=== PATIENT | male | born 1955 | race Caucasian/White ===

== ENCOUNTER 2021-12-28 13:25 | Emergency (ER) | payer MEDICARE, SELFPAY ==
[2021-12-28 13:40] VITALS: BP 163/104; PULSE 74; RESP 20; TEMP 35.9; O2SAT 96
--- NOTE | 2021-12-28 13:45 | ED.WOUNDLAC ---
HPI - Wound/Laceration General Chief Complaint: Wound/Laceration Stated Complaint: Cut on L hand Time Seen by Provider: 12/28/21 13:45 Source: patient and family Mode of arrival: ambulatory Limitations: no limitations History of Present Illness HPI narrative: this is a 66-year-old gentleman that presents with a laceration to his left palm after he was working on his boat trailer hitch and slipped catching his left hand and palm causing laceration and multiple sites of his left palm and left thenar area of his left thumb, there is no numbness or tingling has movement in all of all of his fingers and a brisk radial pulse on. Related Data Home Medications Medication Instructions Recorded Confirmed aspirin 325 mg tablet 325 mg PO DAILY 10/20/20 cyanocobalamin (vitamin B-12) 1,000 mcg PO BID 10/20/20 1,000 mcg tablet loratadine 10 mg tablet 10 mg PO DAILY PRN 10/20/20 phenytoin sodium extended 100 mg 300 mg PO BID cap 10/20/20 capsule carvedilol 3.125 mg PO BID 12/28/21 diltiazem HCl 240 mg PO DAILY 12/28/21 ezetimibe 10 mg PO DAILY 12/28/21 folic acid 1 mg PO DAILY 12/28/21 metformin 500 mg PO BID 12/28/21 Allergies Allergy/AdvReac Type Severity Reaction Status Date / Time [id number] Reductase AdvReac Severe Cramping Verified 12/28/21 14:03 Inhibitor of the Muscles irbesartan AdvReac Unknown Unknown Verified 12/28/21 14:03 quinapril AdvReac Unknown Swelling Verified 12/28/21 14:03 Review of Systems Review of Systems: All systems reviewed & are unremarkable except as noted in HPI and below PMFSH Past Medical History Medical History Hypertension Seizure disorder Vitamin B12 deficiency Surgical History Surgical History History of knee surgery History of surgery on wrist Social History Social History Smoking status: Never smoker Additional living arrangements comments: . Exam Const: General: no acute distress and alert Orientation/consciousness: patient oriented x3 HENMT: Head: normal to inspection Eyes: Conjunctivae: conjunctivae normal Pupils: Equal, round and reactive pupils present EOM: EOMs intact bilaterally Direct Ophthalmoscopy: no photophobia Neck: Neck: normal visual inspection, no lymphadenopathy and no meningeal signs Chest: Chest palpation & inspection: normal inspection of the chest Resp: Effort & Inspection: normal respiratory effort Auscultation: clear to auscultation bilaterally Cardio: Rate: regular rate Rhythm: regular rhythm GI: GI Palp: Yes Soft to palpation Percussion: Yes normal to percussion Back/Spine/Pelvis: Back: no CVA tenderness Skin: General skin exam: normal color Rashes: no rashes Other: Laceration to his left palm approximately 3cm in length flap and also on his left thumb area with a low flap laceration. Neuro: General: patient oriented x3 and moves all extremities Extrem: General: normal to inspection and no pedal edema Psych: Mental Status: mental status grossly normal Affect: normal affect Course Course Emergency Course: Area was prepped 1% lidocaine was given and sutures were placed in his left palmar area. Patient tolerated procedure well with minimal blood loss currently no numbness or tingling and has movement in all of his fingers on his left hand. Vital Signs Vital signs: Vital Signs Temperature 35.9 C L 12/28/21 13:40 Pulse Rate 74 12/28/21 13:40 Respiratory Rate 20 12/28/21 13:40 Blood Pressure 163/104 H 12/28/21 13:40 Pulse Oximetry 96 12/28/21 13:40 Temperature 35.9 C L 12/28/21 13:40 Pulse Rate 74 12/28/21 13:40 Respiratory Rate 20 12/28/21 13:40 Blood Pressure 163/104 H 12/28/21 13:40 Pulse Oximetry 96 12/28/21 13:40 Procedures Laceration Laceration 1: Date: 12/28/21
[2021-12-28] MEDS: TETANUS,DIPHTHERIA,AC PERTUSSIS ADULT 0.5 ML (ADACEL) IM (14:11)
[2021-12-28] MEDS: NEOMYCIN/POLYMYXIN/BACITRACIN OINTMENT PACKET 1 PACKET TOPICAL (14:53)
[2021-12-28 15:14] VITALS: BP 149/92; PULSE 60; RESP 20; TEMP 36.5; O2SAT 97
== END 2021-12-28 15:21 | disposition home or self-care (01) ==
PROVIDERS: Emergency Provider Emergency Medicine; PCP Family Medicine
DX: S61.412A Laceration without foreign body of left hand, initial encounter (principal); W45.8XXA Other foreign body or object entering through skin, initial encounter; I10 Essential (primary) hypertension; E53.8 Deficiency of other specified B group vitamins
CPT/HCPCS: 12002; 90471; 90715; 99282

== ENCOUNTER 2022-01-04 11:38 | Outpatient (CLI) | payer MEDICARE, SELFPAY ==
--- NOTE | ~2022-01-04 | XR_ITS ---
XR hand LT min 3V DATE: 01/04/2022 11:59 INDICATION: First metacarpal/palm laceration one week ago. Evaluate for foreign body. TECHNIQUE: 3 views COMPARISON: None FINDINGS: Prominent arterial calcifications are noted in the distal forearm. Diffuse osteopenia. There is severe osteoarthritic change at the first carpometacarpal joint. There is osteoarthritic roula nge at the second metacarpophalangeal and multiple interphalangeal joints. No recent fracture or dislocation, periosteal reaction or bone destruction. No radiopaque soft tissue foreign body is evident. IMPRESSION: No radiopaque foreign body Osteopenia Polyarticular osteoarthritis, most severe at first carpometacarpal joint Reviewed, dictated and finalized at location A. L[facility] PRACTICE DOCTOR
== END 2022-01-04 11:39 | disposition home or self-care (01) ==
LOC: CHSIMG 11:40
PROVIDERS: PCP Family Medicine; Visit Provider Nurse Practitioner Family
DX: S61.412A Laceration without foreign body of left hand, initial encounter (principal)
CPT/HCPCS: 73130

== ENCOUNTER 2022-09-09 11:41 | Emergency (ER) | payer MEDICARE, SELFPAY ==
--- NOTE | ~2022-09-09 | XR_ITS ---
EXAMINATION: XR finger 2nd LT min 2V DATE: 09/09/2022 12:17 INDICATION: Post injury to the left index finger TECHNIQUE: Dorsal palmar, lateral and oblique views of the left second digit were obtained COMPARISON: None FINDINGS: Nondisplaced fracture extending across the tuft of the left second distal phalanx. Alignment remains essentially anatomic. An irregular contour to the soft tissue contour at the left distal phalanx sugg esting associated nailbed injury which would recommend this equivalent of an open/compound fracture. No other fractures identified. Severe osteoarthritis at the first carpometacarpal joint with remodeli ng of the base of the first metacarpal. Additional polyarticular osteoarthritis, moderate at the seco nd and third metacarpophalangeal joints and mild at the remaining visualized metacarpophalangeal and interphalangeal joints. Diffuse osteopenia. IMPRESSION: 1. Nondisplaced tuft fracture at the left second distal phalanx with suggestion of an associated nail bed injury which if present would render this equivalent of an open/compound fracture at increased ri sk of infection. Reviewed, dictated and finalized at location B. IMPRESSION: 1. Nondisplaced tuft fracture at the left second distal phalanx with suggestion of an associated nailbed injury which if present would render this equivalent of an open/compound fracture at increased risk of infection.
[2022-09-09 11:42] VITALS: BP 144/99; PULSE 67; RESP 16; TEMP 35.7; O2SAT 99
--- NOTE | 2022-09-09 12:40 | ED.UPPEXIN ---
HPI - Extremity Injury (Upper) General Chief Complaint: Extremity Injury, Upper Stated Complaint: left finger injury Time Seen by Provider: 09/09/22 11:43 Source: patient and family Mode of arrival: ambulatory Limitations: no limitations History of Present Illness HPI narrative: patient presents with a injured left index finger after he got it caught in 2 pieces a plank would causing nail avulsion at the of his nail the nail is otherwise intact, no exposed skin underneath the nail currently no bleeding does have some pain and tenderness the distal left index finger with mild swelling has good range of motion with no numbness or tingling. complaint: injury to: left Onset (ago): hour(s) Other Extremity Injury: Left: fingers ( nail avulsion left index finger) Other injuries: none Handedness: left Place: home Severity: mild Severity scale (1-10): 3 Relieving factors: cold therapy Exacerbating factors: none Context: direct blow Related Data Home Medications Medication Instructions Recorded Confirmed aspirin 325 mg tablet 325 mg PO DAILY 10/20/20 09/09/22 cyanocobalamin (vitamin B-12) 1,000 mcg PO BID 10/20/20 09/09/22 1,000 mcg tablet loratadine 10 mg tablet (Claritin) 10 mg PO DAILY PRN allergies 10/20/20 09/09/22 phenytoin sodium extended 100 mg 300 mg PO BID 10/20/20 09/09/22 capsule (Dilantin Extended) carvedilol 3.125 mg tablet 3.125 mg PO BID 12/28/21 09/09/22 gabapentin 300 mg capsule 600 mg PO BID 09/09/22 09/09/22 Allergies Allergy/AdvReac Type Severity Reaction Status Date / Time [id number] Reductase AdvReac Severe Cramping Verified 09/09/22 12:03 Inhibitor of the Muscles irbesartan AdvReac Unknown Unknown Verified 09/09/22 12:03 quinapril AdvReac Unknown Swelling Verified 09/09/22 12:03 Review of Systems Review of Systems: All systems reviewed & are unremarkable except as noted in HPI and below PMFSH Past Medical History Medical History Hypertension Seizure disorder Vitamin B12 deficiency Surgical History Surgical History History of knee surgery History of surgery on wrist Social History Social History Additional living arrangements comments: . Exam Const: General: healthy appearing HENMT: Head: normal to inspection Face/Nose/Sinus: Normal external nose present Face and sinus: normal facial exam Throat: posterior oropharynx normal Eyes: Conjunctivae: conjunctivae normal Neck: Neck: normal visual inspection Chest: Chest palpation & inspection: normal inspection of the chest Resp: Effort & Inspection: normal respiratory effort Auscultation: clear to auscultation bilaterally Cardio: Rate: regular rate Rhythm: regular rhythm GI: GI Palp: Yes Soft to palpation Skin: Other: Nail avulsion left index finger with no bleeding Neuro: General: patient oriented x3 and moves all extremities Extrem: General: normal to inspection and no clubbing, cyanosis or edema Psych: Mental Status: mental status grossly normal Affect: normal affect Course Course Emergency Course: x-ray performed shows that there is a type fracture of the distal left index finger with nail avulsion at the the bed of the fingernail but it is some well intact will leave in place and has been soaking will dress of the finger and send antibiotics to patient's pharmacy, he is up-to-date with his tetanus with a tuft fracture will apply a metal finger splint. Vital Signs Vital signs: Vital Signs Temperature 35.7 C L 09/09/22 11:42 Pulse Rate 67 09/09/22 11:42 Respiratory Rate 16 09/09/22 11:42 Blood Pressure 144/99 H 09/09/22 11:42 Pulse Oximetry 99 09/09/22 11:42 Oxygen Delivery Room Air 09/09/22 11:42 Temperature 35.7 C L 09/09/22 11:42 Pulse Rate 67 09/09/22 11:42 Respiratory Rate 16 10
[2022-09-09 13:00] VITALS: BP 135/80; PULSE 78; RESP 20; O2SAT 96
== END 2022-09-09 13:01 | disposition home or self-care (01) ==
PROVIDERS: Emergency Provider Emergency Medicine; PCP Family Medicine
DX: S62.661A Nondisplaced fracture of distal phalanx of left index finger, initial encounter for closed fracture (principal); W22.8XXA Striking against or struck by other objects, initial encounter
CPT/HCPCS: 29130; 73140; 99284

== ENCOUNTER 2022-12-29 10:06 | Outpatient (RCR) | payer MEDICARE, SELFPAY ==
--- NOTE | 2022-12-31 14:19 | BUPTOPEVAL1 ---
Assessment and note entered by JT File, PT Evaluation Information Assessment Status Evaluation Diagnosis bilateral LE weakness, unsteady gait Subjective Information patient reports he is coming to therapy due to weakness, unable to get up from the floort, and unsteady gait/balance. he reports he has been noticing increased weakness in the legs for the past 3 months or so. he reports he does have a history of falls, but reports his last fall was about 1.5 years ago. he reports during this fall he did get an infection from an injury to the abdomen. he reports he is on disability, and is restricted to walking no more than 200ft at a time without support. he reports he has had 2 strokes. her eports he has a quad can that he uses to get around in the community, as well as, assistance from his . he reports he does not use AD in the home. Reported Pain Level Pain Score 0: Self Report Assessment PT Clinical Summary mr. ramirez presents to skilled PT services for evaluation and treatment of generalized LE weakness, decreased endurance, and unsteady gait. he presents this date with signs and symptoms of lumbar psinal stenosis/DDD affecting his LE strength and endurance for upright activities. he also presents with an increased to moderat at least fall risk per the tinetti, TUG, and 5x sit to stand. he would do well to attend skilled PT to improve his objective/functional deficits and progress towards a return to his prior level functional activity performance and quality of life. Plan of Care Interventions Gait Training,Neuro Re-education,Patient/Caregiver Educati,Therapeutic Activities,Therapeutic Exercise PT Services Indicated Yes Treatment Frequency and 3x weekly for 12 visits Duration These treatments will address the objective and functional deficits as defined above. The patient will be advanced safely and appropriately in order for the patient to progress towards his/her prior level of function. Additional exercises will be introduced and as well as a comprehensive home exercise program upon discharge, if needed, ?to ensure carryover of functional gains achieved in the clinic. This treatment plan has been reviewed and agreement upon by the patient.
--- NOTE | 2023-01-21 10:38 | PTOPPROG ---
Assessment and note entered by JT File, PT Evaluation Information Assessment Status Progress Diagnosis bilateral LE weakness, unsteady gait Subjective Information patient reports he feels pretty good today. he reports he is a little sore in the R hip and lower back with exercises today, but in general his pain is low. he reports feeling stronger since starting therapy. Assessment PT Clinical Summary mr. ramirez presents to skilled PT services for his 10th skilled PT visit. as of this date, he has made progress in balance, endurance, and safety with sit to stand transfers. he has met goals for tinetti, 6 minute walk test, and is progressing towards achieving strength and TUG/5x sit to stand goals. he would benefit from continued skilled PT per his initial POC to reach his remaining goals and improve his endurance and safety with functional activities at home and in the community . Plan of Care Interventions Gait Training,Neuro Re-education,Patient/Caregiver Educati,Therapeutic Activities,Therapeutic Exercise PT Services Indicated Yes Treatment Frequency and continue skilled PT per the initial evaluation for Duration 2 more visits These treatments will address the objective and functional deficits as defined above. The patient will be advanced safely and appropriately in order for the patient to progress towards his/her prior level of function. Additional exercises will be introduced and as well as a comprehensive home exercise program upon discharge, if needed, ?to ensure carryover of functional gains achieved in the clinic. This treatment plan has been reviewed and agreement upon by the patient.
--- NOTE | 2023-01-27 14:39 | PTOPDC ---
Assessment and note entered by JT File, PT Evaluation Information Assessment Status Discharge Diagnosis bilateral LE weakness, unsteady gait Subjective Information patient reports he feels good this date. he reports he has been walking with his outside this week. he reports no falls. he reports he has been compliant with his HEP at home. Reported Pain Level Pain Score 4,4: Self Report Assessment PT Clinical Summary mr. ramirez presents to skilled PT services for his 12th skilled PT visit. as of this date, he has met nearly all goals for skilled PT, except for time to complete 5x sit to stand. he will DC from skilled PT this date, and continue with HEP independent at home. Plan of Care Treatment Frequency and DC to independent HEP Duration
== END 2023-01-27 17:53 | disposition home or self-care (01) ==
LOC: CHSPT 10:06
DX: R29.898 Other symptoms and signs involving the musculoskeletal system (principal)
CPT/HCPCS: 97110; 97112; 97161; 97530; 97750

== ENCOUNTER 2023-03-09 14:22 | Emergency (ER) | payer MEDICARE, SELFPAY ==
--- NOTE | ~2023-03-09 | XR_ITS ---
Right Hand Technique: PA, oblique, and lateral views were obtained. Clinical History: Pain Findings: Traumatic fracture of the distal fifth metacarpal neck present, with volar angulation. Ther e is also traumatic fracture of the distal fourth metacarpal with extension to the metacarpal head, m inimally displaced. Remaining osseous structures are intact. There is moderate to advanced degenerati ve change at the first CMC joint. Remaining joint spaces are preserved. Soft tissues are unremarkable . Impression: Traumatic fractures of the distal fourth and fifth metacarpals, as detailed above. Moderate to severe degenerative change at the first CMC joint. Reviewed, dictated and finalized at location M. Impression: Traumatic fractures of the distal fourth and fifth metacarpals, as detailed abo ve. Moderate to severe degenerative change at the first CMC joint.
[2023-03-09 14:25] VITALS: BP 159/90; PULSE 62; RESP 18; TEMP 36.9; O2SAT 95
--- NOTE | 2023-03-09 14:34 | ED.GENADULT ---
HPI - General Adult General Chief complaint: Extremity Injury, Upper Stated complaint: right hand pain Time Seen by Provider: 03/09/23 14:30 History of Present Illness HPI narrative: The patient is a 67-year-old male with a history of asthma, hyperlipidemia, spry stroke, seizure disorder, hypertension, who is on aspirin 325 mg daily. Prior right wrist surgery. 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 He broke his fall with his flexed right hand, resulting in a hyper-flexion injury at the right wrist, where he has pain, the dorsal aspect of the right hand, mostly at the 4th and 5th metacarpal bones. His helmet resulted in a small abrasion at the right forehead. no other complaints. Has not taken any pain medications. No other injuries. Related Data Home Medications Medication Instructions Recorded Confirmed aspirin 325 mg tablet 325 mg PO DAILY 10/20/20 09/09/22 cyanocobalamin (vitamin B-12) 1,000 mcg PO BID 10/20/20 09/09/22 1,000 mcg tablet loratadine 10 mg tablet (Claritin) 10 mg PO DAILY PRN allergies 10/20/20 09/09/22 phenytoin sodium extended 100 mg 300 mg PO BID 10/20/20 09/09/22 capsule (Dilantin Extended) carvedilol 3.125 mg tablet 3.125 mg PO BID 12/28/21 09/09/22 gabapentin 300 mg capsule 600 mg PO BID 09/09/22 09/09/22 Allergies Allergy/AdvReac Type Severity Reaction Status Date / Time [id number] Reductase AdvReac Severe Cramping Verified 03/09/23 14:33 Inhibitor of the Muscles irbesartan AdvReac Unknown Unknown Verified 03/09/23 14:33 quinapril AdvReac Unknown Swelling Verified 03/09/23 14:33 Review of Systems Review of Systems: All systems reviewed & are unremarkable except as noted in HPI and below Constitutional: Constitutional: Reports as per HPI, Reports no additional constitutional complaints, Denies chills, Denies excessive sweating, Denies fatigue, Denies fever(s), Denies headache(s) and Denies weakness Eyes: Eyes: Reports as per HPI, Reports no additional eye complaints, Denies change in vision and Denies photophobia ENT: Reports system reviewed and no additional complaints, except as documented, Reports as per HPI, Denies dysphagia, Denies vertigo, Denies dizziness, Denies headache(s), Denies lip swelling, Denies nasal congestion, Denies sore throat, Denies throat swelling and Denies tongue swelling Cardiovascular: Cardiovascular: Reports as per HPI, Reports no additional cardiovascular complaints, Denies chest pain, Denies syncope, Denies rapid heart rate and Denies dyspnea Respiratory: Respiratory: Reports as per HPI, Reports no additional respiratory complaints, Denies chest congestion, Denies cough, Denies dyspnea and Denies wheezing Gastrointestinal: Gastrointestinal: Reports as per HPI, Reports no additional gastrointestinal complaints, Denies abdominal pain, Denies constipation, Denies dysphagia, Denies diarrhea, Denies nausea and Denies vomiting Genitourinary: Genitourinary: Reports as per HPI, Denies hematuria, Denies oliguria, Denies dysuria, Denies urinary frequency, Denies urinary incontinence and Denies urinary urgency Musculoskeletal: Musculoskeletal: Reports no additional musculoskeletal complaints, Denies back pain, Denies myalgias, Reports arthralgias (right hand laterally (ulnar aspect dorsally)), Reports joint swelling (right hand laterally (ulnar aspect dorsally)) and Denies numbness Integumentary/Breasts: Skin/Breast: Reports system reviewed and no additional complaints, except as docu, Denies pruritus, Denies erythema, Denies rash and Denies skin ulcer Neurologic: Reports system reviewed and no additional complaints, except as documented, Reports as per HPI, Denies confusion, Denies vertigo, Denies dizziness, Denies syncope, Denies headache(s), Denies focal weakness, Denies numbness and Denies weakness Psychiatric: Psychiatric: Reports as per HPI, Denies anxiety, Denies confusion, Denies depression, Denies homicidal
[2023-03-09] MEDS: IBUPROFEN 400 MG TABLET 800 MG PO (14:58)
[2023-03-09] MEDS: ACETAMINOPHEN 500 MG TABLET 1000 MG PO (14:58)
[2023-03-09] MEDS: traMADol HCL (*CRX) 50 MG TABLET 100 MG PO (15:33)
[2023-03-09 15:48] VITALS: BP 158/95; PULSE 84; RESP 18; TEMP 36.4; O2SAT 97
== END 2023-03-09 15:50 | disposition home or self-care (01) ==
PROVIDERS: Emergency Provider Emergency Medicine; PCP Family Medicine
DX: S62.364A Nondisplaced fracture of neck of fourth metacarpal bone, right hand, initial encounter for closed fracture (principal); S62.366A Nondisplaced fracture of neck of fifth metacarpal bone, right hand, initial encounter for closed fracture; E78.5 Hyperlipidemia, unspecified; I10 Essential (primary) hypertension; Z79.82 Long term (current) use of aspirin; W18.39XA Other fall on same level, initial encounter
CPT/HCPCS: 29125; 73130; 99284; A4565; A9270

== ENCOUNTER 2023-05-12 12:31 | Outpatient (CLI) | payer MEDICARE, SELFPAY ==
[2023-05-12 13:08] LABS: Prothrombin Time 10.6 Seconds (9.50-12.10)
[2023-05-12 13:19] LABS: Alanine Aminotransferase 47 U/L (16-63); Albumin Level 3.8 g/dL (3.4-5.0); Alkaline Phosphatase 106 U/L (46-116); Anion Gap 9 mmol/L (8-16); Aspartate Amino Transferase 23 U/L (15-37); Bilirubin,Total 0.3 mg/dL (0.00-1.00); Blood Urea Nitrogen 11 mg/dL (7-18); Calcium 9.3 mg/dL (8.5-10.1); Carbon Dioxide 27 mmol/L (21-32); Chloride 106 mmol/L (98-108); Estimated Glomerular Filt Rate > 60; Glucose 107 mg/dL (70-99); Osmolality Calculated 293 mOsm/kg (285-295); Potassium 4.8 mmol/L (3.5-5.1); Sodium 142 mmol/L (136-145); Total Protein 7.8 g/dL (6.4-8.2)
== END 2023-05-12 12:32 | disposition home or self-care (01) ==
LOC: CHSLAB 12:34
PROVIDERS: PCP Family Medicine; Visit Provider Family Medicine
DX: R10.9 Unspecified abdominal pain (principal); I10 Essential (primary) hypertension
CPT/HCPCS: 36415; 80053; 85610

== ENCOUNTER 2023-12-27 08:30 | Outpatient (CLI) | payer MEDICARE, SELFPAY ==
[2023-12-27 09:03] LABS: Basophils Absolute Auto 0.06 K/mm3 (0.00-0.10); Basophils Percent Auto 0.6 % (0.0-1.0); Eosinophils Percent Auto 4.2 % (1.0-6.0); Hematocrit 45.9 % (37.0-46.0); Hemoglobin 15.3 g/dL (12.4-15.3); Immature Granulocyte Absolute 0.03 K/mm3 (0.00-0.00); Immature Granulocyte Percent A 0.3 % (0.0-0.0); Lymphocytes Absolute Auto 3.34 K/mm3 (1.10-4.50); Mean Corpuscular HGB Conc 33.3 g/dL (32.0-36.0); Mean Corpuscular Hemoglobin 31.4 pg (27.0-31.0); Mean Corpuscular Volume 94.3 fL (78.0-102.0); Mean Platelet Volume 9.5 fl (8.7-11.0); Monocytes Absolute Auto 0.95 K/mm3 (0.10-0.90); Monocytes Percent Auto 9.9 % (2.0-11.0); Neutrophils Absolute Auto 4.8 K/mm3 (1.7-7.2); Platelet Count Result 272 K/mm3 (150-420); Red Blood Count 4.87 M/mm3 (4.70-6.10); Red Cell Distribution Width 12.1 % (11.6-14.4); White Blood Count 9.6 K/mm3 (4.8-10.8)
[2023-12-27 10:07] LABS: Alanine Aminotransferase 80 U/L (16-63); Albumin Level 3.1 g/dL (3.4-5.0); Alkaline Phosphatase 99 U/L (46-116); Anion Gap 12 mmol/L (8-16); Aspartate Amino Transferase 46 U/L (15-37); Bilirubin,Total 0.3 mg/dL (0.00-1.00); Blood Urea Nitrogen 11 mg/dL (7-18); Calcium 8.7 mg/dL (8.5-10.1); Carbon Dioxide 26 mmol/L (21-32); Chloride 100 mmol/L (98-108); Cholesterol 214 mg/dL (0-200); Estimated Glomerular Filt Rate > 60; Glucose 210 mg/dL (70-99); HDL Direct 37 mg/dL (40-60); LDL Cholesterol Calculated 137 mg/dL (<130); Osmolality Calculated 291 mOsm/kg (285-295); Phenytoin Dilantin 12 ug/mL (10-20); Potassium 5.3 mmol/L (3.5-5.1); Sodium 138 mmol/L (136-145); Total Protein 7.5 g/dL (6.4-8.2); Triglycerides 202 mg/dL (0-150)
== END 2023-12-27 08:31 | disposition home or self-care (01) ==
LOC: CHSLAB 08:35
PROVIDERS: PCP Family Medicine; Visit Provider Clinical Nurse Specialist Adult Health
DX: R56.9 Unspecified convulsions (principal); Z86.31 Personal history of diabetic foot ulcer; I66.9 Occlusion and stenosis of unspecified cerebral artery; E78.49 Other hyperlipidemia
CPT/HCPCS: 36415; 80053; 80061; 80185; 85025

== ENCOUNTER 2024-03-06 14:37 | Outpatient (CLI) | payer MEDICARE, SELFPAY ==
--- NOTE | ~2024-03-06 | XR_ITS ---
XR knee RT min 4V 03/06/2024 15:19 Indication: Right knee pain Procedure: 4 views right knee Comparison: No prior studies for comparison. Findings: No fracture, subluxation or dislocation. There is atherosclerosis. There is prominence of t he tibial tubercle with overlying soft tissue swelling. Small joint effusion. No acute fracture or tr aumatic malalignment. There is mild lateral soft tissue swelling. There is an old avulsion fracture a djacent to the lateral tibial plateau. Impression: 1: No acute bone or joint abnormality. 2: Hypertrophy of the tibial tuberosity with fragmentation and overlying soft tissue swelling. This may represent sequela of previous trauma or degenerative change. Reviewed, dictated and finalized at location A. Impression: 1: No acute bone or joint abnormality. 2: Hypertrophy of the tibial tuberosity with fragmentation and overlying soft tissue swelling. This may represent sequela of previous trauma or degenerative change.
== END 2024-03-06 14:38 | disposition home or self-care (01) ==
LOC: CHSIMG 14:40
PROVIDERS: PCP Family Medicine; Visit Provider Family Medicine
DX: M25.461 Effusion, right knee (principal); M79.89 Other specified soft tissue disorders
CPT/HCPCS: 73564

== ENCOUNTER 2024-09-17 08:38 | Emergency (ER) | payer MEDICARE, SELFPAY ==
--- NOTE | ~2024-09-17 | CT_ITS ---
CT abdomen pelvis w con Ordering provider: Trenton Jaquez MD History: 69 years Male with . RLQ PAIN,+WBC,CONSTIPATION . Comparison: None. Technique: CT abdomen and pelvis with IV and without oral contrast. Automated exposure control and it erative reconstruction technique were employed. The dose-length product was 1436.89 mGy-cm. 100 mL Om nipaque 350 was given IV. Findings: VISUALIZED LOWER CHEST: Dependent atelectatic changes. Nodule in the left lower lobe area measuring 5 .3 mm. 6 months follow-up CT is advised. Tiny nodule also seen in the left lower lobe laterally measu ring 3 mm. UPPER ABDOMINAL ORGANS: Liver: Fat infiltration. Hepatomegaly. Gallbladder: Normal. Spleen: Normal. Stomach/duodenum: Normal. Pancreas: Normal. Adrenals: Slightly prominent adrenal glands with possible adenomyosis. Kidneys: 2 mm Tiny stone in the right lower ureter with right changes. Tiny stone in the right kidney upper pole. Tiny cyst in the left kidney upper pole. PELVIC ORGANS: The bladder wall is slightly thickened with underfilling . BOWEL AND MESENTERY: Colon: No evidence of diverticulitis. Normal appendix. Small Bowel: Normal. No obstruction. Peritoneum/mesentery: No free air or free fluid. No mesenteric lymphadenopathy. RETROPERITONEUM: Mild atheromatous disease of the abdominal aorta. No retroperitoneal lymphadenopat hy. MUSCULOSKELETAL: Superficial soft tissues: Bilateral fat containing inguinal hernias. Otherwise, The superficial soft tissues are normal. Bones: Age appropriate degenerative changes of the spine. Bilateral sacroiliitis. Old compression fra cture of T12 is noted. IMPRESSION: 1. Stone in the right lower ureter with right hydronephrotic changes. 2. Fat infiltration of the liver. Hepatomegaly. 3. Left fat-containing inguinal hernia. 4. Slightly prominent adrenal glands with possible small adenomas. No follow-up is advised unless cl inically warranted. Reviewed, dictated and finalized at location A. IMPRESSION: 1. Stone in the right lower ureter with right hydronephrotic changes. 2. Fat infiltration of the liver. Hepatomegaly. 3. Left fat-containing inguinal hernia. 4. Slightly prominent adrenal glands with possible small adenomas. No follow-u p is advised unless clinically warranted.
[2024-09-17 08:42] VITALS: BP 150/96; PULSE 77; RESP 20; TEMP 36.6; O2SAT 96
--- NOTE | 2024-09-17 08:45 | ED.ABDPAIN ---
HPI - Abdominal Pain General Chief Complaint: Abdominal Pain Stated Complaint: CONSTIPATION Time Seen by Provider: 09/17/24 08:44 Source: patient Mode of arrival: ambulatory Limitations: no limitations History of Present Illness HPI narrative: 69-year-old male history of CVA with right-sided weakness, hypertension, seizure presents to the ED with -- 1 week history of abdominal pain and constipation. No nausea /vomiting. No fever. The abdominal pain is intermittent. No exacerbating or relieving factors. no history of abdominal surgeries. Has epigastric parietal hernia. -- Accidental fall this morning without any injuries. No head injury. No loss of consciousness. MD elicited complaint: abdominal pain Pertinent past history: constipation Onset (ago): week(s) ( One week) Pain Consistency: intermittent Location: RLQ Severity: mild Quality: aching Radiation: none Migration to: no migration Exacerbating factors: nothing Relieving factors: nothing Related Data Home Medications Medication Instructions Recorded Confirmed aspirin 325 mg tablet 325 mg PO DAILY 10/20/20 09/17/24 cyanocobalamin (vitamin B-12) 1,000 mcg PO BID 10/20/20 09/17/24 1,000 mcg tablet loratadine 10 mg tablet (Claritin) 10 mg PO DAILY PRN allergies 10/20/20 09/17/24 phenytoin sodium extended 100 mg 300 mg PO BID 10/20/20 09/17/24 capsule (Dilantin Extended) gabapentin 300 mg capsule 800 mg PO BID 09/09/22 09/17/24 Allergies Allergy/AdvReac Type Severity Reaction Status Date / Time [id number] Reductase AdvReac Severe Cramping Verified 09/17/24 08:46 Inhibitor of the Muscles irbesartan AdvReac Unknown Unknown Verified 09/17/24 08:46 quinapril AdvReac Unknown Swelling Verified 09/17/24 08:46 Review of Systems Review of Systems: All systems reviewed & are unremarkable except as noted in HPI and below Constitutional: Constitutional: Reports as per HPI and Reports no additional constitutional complaints Eyes: Eyes: Reports as per HPI and Reports no additional eye complaints ENT: Reports system reviewed and no additional complaints, except as documented and Reports as per HPI Cardiovascular: Cardiovascular: Reports as per HPI Respiratory: Respiratory: Reports as per HPI and Reports no additional respiratory complaints Gastrointestinal: Gastrointestinal: Reports as per HPI, Reports no additional gastrointestinal complaints, Reports abdominal pain and Reports constipation Genitourinary: Genitourinary: Reports no additional male genitourinary complaints and Reports as per HPI Musculoskeletal: Musculoskeletal: Reports no additional musculoskeletal complaints and Reports as per HPI Integumentary/Breasts: Skin/Breast: Reports system reviewed and no additional complaints, except as docu and Reports as per HPI Neurologic: Reports system reviewed and no additional complaints, except as documented Comments: Right hemiplegia Psychiatric: Psychiatric: Reports no additional psychiatric complaints and Reports as per HPI Endocrine: Endocrine: Reports no additional endocrine complaints and Reports as per HPI Hematologic/Lymphatic: Hematologic/Lymphatic: Reports no additional hematologic/lymphatic complaints and Reports as per HPI Allergic/Immunologic: Allergic/Immunologic: Reports no additional allergic/immunologic complaints and Reports as per HPI PMFSH Past Medical History Medical History Hypertension Seizure disorder Vitamin B12 deficiency Surgical History Surgical History History of knee surgery History of surgery on wrist Social History Social History Smoking status: Never smoker Lack of Transportation: No Lack of Food: Never True Current Housing: I Have Housing Concerned About Future Housing: No Difficulty Paying Gas/Electric Bills: YES Diff
--- NOTE | 2024-09-17 09:00 | PC.NURSE ---
PT DENIES ANY PAIN OR INJURY FROM FALL, NO WOUNDS, CONTUSIONS, DEFORMITIES ARE NOTED. PT DOES AMBULATE WITH CANE NORMALLY.
[2024-09-17 09:25] LABS: Basophils Absolute Auto 0.04 K/mm3 (0.00-0.10); Basophils Percent Auto 0.3 % (0.0-1.0); Eosinophils Absolute Auto 0.11 K/mm3 (0.02-0.50); Eosinophils Percent Auto 0.7 % (1.0-6.0); Hematocrit 40.8 % (37.0-46.0); Hemoglobin 14.3 g/dL (12.4-15.3); Immature Granulocyte Absolute 0.06 K/mm3 (0.00-0.00); Immature Granulocyte Percent A 0.4 % (0.0-0.0); Lymphocytes Absolute Auto 3.28 K/mm3 (1.10-4.50); Lymphocytes Percent Auto 20.6 % (18.0-42.0); Mean Corpuscular Hemoglobin 32.3 pg (27.0-31.0); Mean Corpuscular Volume 92.1 fL (78.0-102.0); Mean Platelet Volume 10.4 fl (8.7-11.0); Monocytes Absolute Auto 1.78 K/mm3 (0.10-0.90); Monocytes Percent Auto 11.2 % (2.0-11.0); Neutrophils Absolute Auto 10.65 K/mm3 (1.70-7.20); Neutrophils Percent Auto 66.8 % (50.0-70.0); Platelet Count Result 209 K/mm3 (150-420); Red Blood Count 4.43 M/mm3 (4.70-6.10); Red Cell Distribution Width 12.2 % (11.6-14.4); White Blood Count 15.9 K/mm3 (4.8-10.8)
[2024-09-17 09:35] LABS: Add Urine Microscopic? YES; Appearance Urine Clear (Clear); Bilirubin Urine Negative (Negative); Blood Urine Trace-intact (Negative); Color Urine Yellow (Yellow); Glucose Urine UA Trace (Negative); Ketones Urine Negative (Negative); Leukocyte Esterase Ur Negative LEU/UL (Negative); Nitrate Urine Negative (Negative); Protein Urine Trace (Negative); Urobilinogen Urine 0.2 mg/dL (0.2-1.0); pH Urine 5.5 (5.0-8.0)
[2024-09-17 09:40] LABS: Alanine Aminotransferase 40 U/L (16-63); Albumin Level 2.9 g/dL (3.4-5.0); Alkaline Phosphatase 107 U/L (46-116); Anion Gap 9 mmol/L (4-12); Aspartate Amino Transferase 18 U/L (15-37); Bilirubin,Total 0.8 mg/dL (0.00-1.00); Blood Urea Nitrogen 14 mg/dL (7-18); Carbon Dioxide 25 mmol/L (21-32); Chloride 97 mmol/L (98-108); Estimated CRCL calculation 55 ml/min; Estimated Glomerular Filt Rate 45; Glucose 239 mg/dL (70-99); Lipase 26 U/L (16-77); Osmolality Calculated 280 mOsm/kg (285-295); Potassium 4.4 mmol/L (3.5-5.1); Sodium 131 mmol/L (136-145); Total Protein 7.7 g/dL (6.4-8.2)
[2024-09-17 09:41] LABS: Prothrombin Time 11.2 Seconds (9.50-12.1)
[2024-09-17 09:44] LABS: Bacteria Urine Rare /hpf; RBC Urine 0-2 /hpf (0-2); WBC Urine None seen /hpf (0-3)
[2024-09-17 09:45] LABS: Lactic Acid Reflex 1.4 mmol/L (0.4-2.0)
[2024-09-17 10:02] LABS: Hemoglobin A1C 8.6 % (<5.7)
[2024-09-17] MEDS: LACTATED RINGERS 500 ML 999 ML IV CONT (10:02)
[2024-09-17 10:30] VITALS: BP 153/88; PULSE 68; RESP 18; O2SAT 98
--- NOTE | 2024-09-17 11:00 | PC.NURSE ---
PT IS AWAITING CT RESULTS AT THIS TIME. NAD NOTED. AT BEDSIDE. WILL CONTINUE TO MONITOR.
[2024-09-17] MEDS: TAMSULOSIN HCL 0.4 MG CAPSULE PO (12:01)
[2024-09-17] MEDS: HYDROcodone/acetaminophen (*CRX) 5-325 MG TABLET 1 TAB PO (12:04)
[2024-09-17 12:20] VITALS: BP 150/80; PULSE 80; RESP 18; O2SAT 99
== END 2024-09-17 12:20 | disposition home or self-care (01) ==
PROVIDERS: Emergency Provider Internal Medicine Critical Care Medicine; PCP Family Medicine
DX: K59.00 Constipation, unspecified (principal); K40.90 Unilateral inguinal hernia, without obstruction or gangrene, not specified as recurrent; E11.9 Type 2 diabetes mellitus without complications; I10 Essential (primary) hypertension; Z79.82 Long term (current) use of aspirin
CPT/HCPCS: 36415; 74177; 80053; 81001; 83036; 83605; 83690; 85025; 85610; 99284; A9270; J7120; Q9967

== ENCOUNTER 2025-05-28 08:21 | Outpatient (CLI) | payer MEDICARE, SELFPAY ==
--- OUTSIDE RECORDS SUMMARY | 2025-05-28 08:31 | XMS_ITS | Encounter Summary ---
Author Organization [facility] [employer] Care Team Providers Care Validation Intern Name Role Phone Louie Hood MD Primary Care Provider Zara Smith FERRIS WHEEL OPERATOR, TELEVISION NEWS ANCHOR Unavailable [phone] Encounter Details Date Type Department Care Team (Latest Contact Info) Description 05/27/2025 Travel Social History Tobacco Use Types Packs/Day Years Used Date Smoking Tobacco: Never Smokeless Tobacco: Never Alcohol Use Standard Drinks/Week Comments Not Currently 0 (1 standard drink = 0.6 oz pur e alcohol) Sex and Gender Information Value Date Recorded Sex Assigned at Not on file Legal Sex Male 10:56 PM CDT Gender Identity Not on file Sexual Orientation Not on file documented as of this encounter Plan of Treatment Upcoming Encounters Date Type Department Care Team (Late st Contact Info) Description 05/27/2026 10:30 AM CDT Office Visit [facility] - [facility]rology - [place] [address] [place] [address] Zara Smith, FERRIS WHEEL OPERATOR, TELEVISION NEWS ANCHOR [address] [place] [address] documented as of this encounter Visit Diagnoses Not on filedocumented in this encounter Care Teams Validation Intern Relationship Specialty Start Date End Date Louie Hood MD [address] [place] [address] PCP - General Family Medicine 10/28/21 Zara Smith APRN, TELEVISION NEWS ANCHOR [address] [place] [address] Nurse Practitioner Advanced Practice Nurse 12/23/22 documented as of this encounter
--- OUTSIDE RECORDS SUMMARY | 2025-05-28 08:31 | XMS_ITS | Encounter Summary ---
Author Organization [facility] Address [address] [place] [address] Phone Care Team Providers Care Author'S Agent Name Role Phone Louie Hood MD Primary Care Provider Zara Smith APRN, AREA OPERATIONS MANAGER Unavailable [phone] Reason for Visit * Reason Comments Medication Refill Encounter Details Date Type Department Care Team (Late Contact Info) Description 02/06/2023 Refill [facility] Neurology - [place] [address]2 [place] [phone] Zara Smith, MAIL MESSENGER CONTRACTOR, AREA OPERATIONS MANAGER [address] [place] [address] Medication Refill Social History Tobacco Use Types Packs/Day Years [...] Encounters Date Type Department Care Team (Late Contact Info) Description 05/27/2026 10:30 AM CDT Office Visit [facility] Neurology [facility] [address]2 [place] [address] Zara Smith APRN, AREA OPERATIONS MANAGER [address] [place] [address] documented as of this encounter Visit Diagnoses Not on filedocumented in this encounter Care Teams Author'S Agent Relationship Specialty Start Date End Date Louie Hood MD [address] [place] [address] PCP - General Family Medicine 10/28/21 Zara Smith APRN, AREA OPERATIONS MANAGER [address] [place] [address] Nurse Practitioner Advanced Practice Nurse 12/23/22 documented as of this encounter
--- OUTSIDE RECORDS SUMMARY | 2025-05-28 08:31 | XMS_ITS | Encounter Summary ---
Author Organization [facility] Address [address] [place] [address] Phone Care Team Providers Care Traffic Personnel Supervisor Name Role Phone Louie Hood MD Primary Care Provider [phone] Zara Smith APRN, [employer] Unavailable [phone] Reason for Visit * Reason Comments Medication Refill Encounter Details Date Type Department Care Team (Late Contact Info) Description 09/19/2022 Refill [facility] Neurology - [place] [address]2 [place] [phone] Zara Smith, EMR SPECIALIST, [employer]ANCE INTERNS[employer]IP [address] [place] [address] Medication Refill Social History Tobacco Use Types [...] Description 05/27/2026 10:30 AM CDT Office Visit [facility] Neurology [facility] #2 [place] [address] Zara Smith APRN, [employer] INTER[employer] [address] [place] [address] documented as of this encounter Visit Diagnoses Not on filedocumented in this encounter Care Teams Traffic Personnel Supervisor Relationship Specialty Start Date End Date Louie Hood MD [address] [place] [address] PCP - General Family Medicine 10/28/21 Zara Smith APRN, [employer] [address] [place] [address] Nurse Practitioner Advanced Practice Nurse 12/23/22 documented as of this encounter
--- OUTSIDE RECORDS SUMMARY | 2025-05-28 08:31 | XMS_ITS | Encounter Summary ---
Author Organization [facility] Address [address] [place] [address] Phone Care Team Providers Care Nutritional Services Cook Name Role Phone Quique Camara MD Primary Care Provider Louie Hood MD Primary Care Provider [phone] Zara Smith APRN, SUPERVISOR DETASSELING CREW Unavailable [phone] Reason for Visit * Reason Comments Medication Refill Encounter Details Date Type Department Care Team (Late st Contact Info) Description 03/04/2021 Refill [facility] Central Scheduling [address] [place] [id number] Quique Camara MD [address] [facility] [place] [address] Medication Refill Social History Tobacco Use Types Packs/Day Years Used Date Smoking Tobacco: Never Assessed Sex and Gender Information Value Date Recorded Sex Assigned at Not on file Legal Sex Male 10:56 PM CDT Gender Identity Not on file Sexual Orientation Not on file documented as of this encounter Miscellaneous Notes * Telephone Encounter - Willow Moses RN - 03/05/2021 8:04 AM CDT Please review and sign. documented in this encounter Plan of Treatment Upcoming Encounters Date Type Department Care Team (Late st Contact Info) Description 05/27/2026 10:30 AM CDT Office Visit [facility] - [facility] [address]2 [place] [address] Zara Smith APRN, JEFFERY [address] [place] [address] documented as of this encounter Visit Diagnoses Not on filedocumented in this encounter Care Teams Nutritional Services Cook Relationship Specialty Start Date End Date Quique Camara MD [address] [facility] [place] [address] PCP - General Internal Medicine 05/20/20 10/27/21 Louie Hood MD [address] [place] [address] PCP - General Family Medicine 10/28/21 Zara Smith APRN, SUPERVISOR DETASSELING CREW [address] [place] [address] Nurse Practitioner Advanced Practice Nurse 12/23/22 documented as of this encounter
--- OUTSIDE RECORDS SUMMARY | 2025-05-28 08:31 | XMS_ITS | Clinical Summary ---
Author Organization [facility] Office Building [facility] Address [address] [place] [address] Care Team Providers Care Dry Box Tender Name Role Phone Louie Hood DO Primary Care Provider Allergies Active Allergy Reactions Criticality Noted Date Comments Quinapril Swelling Medium Fluvastatin Other (See comments) Low 05/12/2011 HIGH LFT Irbesartan Niacin Other (See comments) Low 05/12/2011 HIGH LFT Other Other (See comments) Low 11/24/2017 HIGH LFT Medications carvedilol (COREG) 3.125 mg tablet take 1 tablet by oral route 2 times every day with food 0 0 6 Active dilTIAZem (CARDIZEM) 60 mg tablet take 1 tablet by oral route 3 times every day 0 0 6 Active Additional Information Patient taking differently:60 mgoral 3 times daily, Reported on 06/26/2021 naproxen (ALEVE) 220 mg tablet take 1 tablet by oral route every 12 hours as needed 0 0 6 Active Additional Information Patient not taking.Reported on 06/26/2021 lysine (L-LYSINE) 500 mg tablet 500 mg. 0 0 6 Active Additional Information Patient not taking.Reported on 06/26/2020 omega-3 fatty acids-fish oil (FISH OIL) 360-1,200 mg capsule 0 0 6 Active aspirin 325 mg tablet take 1 tablet by oral route every day 0 0 6 Active milk thistle 175 mg tablet 175 mg. 0 0 6 Active Additional Information Patient not taking.Reported on 06/26/2021 cinnamon bark (CINNAMON) 500 mg capsule take 2 by oral route every day for 30 days 0 0 6 Active loratadine (CLARITIN) 10 mg tablet take 1 tablet by oral route every day 0 0 4 Active ezetimibe (ZETIA) 10 mg tablet Take 10 mg by mouth daily 0 Active metFORMIN (GLUCOPHAGE) 500 mg tablet Take 500 mg by mouth 2 (two) times a day 0 Active cyanocobalamin (Vitamin B-12) 1,000 mcg sublingual tablet Take 1,000 mcg by mouth daily Active calcium carbonate-vitami n D3 1,000 mg(2,500 mg)-800 unit tablet Take by mouth Acti ve saw palmetto fruit 450 mg capsule Take by mouth Active fexofenadine (BLAISE) 180 mg tablet Take 180 mg by mouth daily Active albuterol HFA (PROVENTIL HFA,VENTOLIN HFA,PROAIR HFA) 90 mcg/actuation inhaler Inhale 2 puffs every 6 (six) hours as needed for wheezing Active MULTIVITAMIN ORAL Take by mouth Active FOLIC ACID ORAL Take by mouth Active phenytoin ER (DILANTIN) 100 mg ER capsuleIndicatio ns: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 (HCC) Take 3 capsules (300 mg total) by mouth 2 (two) times a day Pt is taking 3 Tabs BID 540 capsule 3 1 Active gabapentin (NEURONTIN) 600 mg tabletIndication s: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 He is in need of refill of medications at this time. I have renewed phenytoin 300 mg b.i.d. and gabapentin 600 mg b.i.d. as presently prescribed. I will also obtain a phenytoin level, AST, and ALT for medication level monitoring as well as surveillance screening of potential liver dysfunction associated with continued phenytoin dosing. A follow-up in Neurology Clinic in a year. Assessment & Plan (06/26/2020 8:52 AM CDT): Patient continues on combination therapy of phenytoin and gabapentin without adverse effects and continued good seizure control. I have renewed both his phenytoin and gabapentin as scheduled. I will obtain yearly phenytoin, AST, and ALT level for medication monitoring. I will plan on seeing him back in 1 year. Medication monitoring encounter 06/26/2020 Assessment & Plan (06/26/2020 8:52 AM CDT): Patient's phenytoin and gabapentin are are well tolerated. I will obtain yearly phenytoin, AST, and ALT levels for medication monitoring of the phenytoin. 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 Assessment & Plan (06/26/2020 8:53 AM CDT): Patient continues on cerebrovascular prophylaxis following his prior ischemic stroke with aspirin therapy. I see no interval neurologic changes since his last visit in March 2019. Obstructive sleep apnea syndrome 06/18/2016 Overview (03/04/2017): Obstructive sleep apnea syndrome Hypersomnia 06/18/2016 Overview (03/04/2017): Hypersomnia Adiposity 06/18/2016 Overview (03/04/2017): Obesity, Class II, BMI 35-39.9 Surgical History Surgery Date Site/Laterality Comments OTHER SURGICAL HISTORY B knee surgeries OTHER SURGICAL HISTORY R wrist surgery SHOULDER SURGERY R shoulder surgery KNEE ARTHROPLASTY Knee replacement SHOULDER ARTHROSCOPY Arthroscopy shoulder OTHER SURGICAL HISTORY Arthroscopy wrist Medical History Medical History Date Comments Hx Other Medical RHINITIS Hx Other Medical CVA Adiposity Obesity Sleep apnea Sleep apnea Hx Other Medical R KNEE Hx Other Medical l KNEE Cerebrovascular accident (CVA) (HCC) Stroke Hypertension Hypertension Seizure disorder (HCC) Seizure d isorder Hypercholesterolemia High choles terol Hyperlipidemia Family History Medical History Relation Name Comments No Known Problems Brother Hypertension Father Hypertension; Stroke Father Stroke; Diabetes Mother Diabetes mellit us; Non-Hodgkin's Lymphoma Mother Non-H odgkin's lymphoma; Hypertension Other Family history of Hypertension; Relation Name Status Comments Brother Alive Father Mother Other Social History Tobacco Use Types Packs/Day Years Used Date Smoking Tobacco: Never Smokeless Tobacco: Former Chew Alcohol Use Standard Drinks/Week Comments Yes 0 (1 standard drink = 0.6 oz pur e alcohol) Sex and Gender Information Value Date Recorded Sex Assigned at Not on file Legal Sex Male 10:04 AM CARDIOVASCULAR TECH Gender Identity Not on file Sexual Orientation Not on file Obstetrics History Last Filed Vital Signs Vital Sign Reading Time Taken Comments Blood Pressure 128/82 06/26/2021 8:27 AM CDT Pulse 60 06/26/2021 8:27 AM CDT Temperature 36.4 C (97.5 F) 06/26/2021 8:27 AM CDT Respiratory Rate 20 06/18/2020 2:48 PM CDT Oxygen Saturation 99% 06/18/2020 2:48 PM CDT Inhaled Oxygen Concentration - - Weight 122.3 kg (269 lb 9.6 oz) 06/26/2021 8:27 AM CDT Height 180.3 cm (5' 11) 06/26/2021 8:27 AM CDT Body Mass Index 37.6 06/26/2021 8:27 AM CDT Plan of Treatment Not on file Insurance [facility] MDCR HMO REF Care Teams Dry Box Tender Relationship Specialty Start Date End Date Louie Hood DO [address] [place] [address] PCP - General Family Medicine 06/26/21
--- OUTSIDE RECORDS SUMMARY | 2025-05-28 08:31 | XMS_ITS | Encounter Summary ---
Author Organization [facility] Address [address] [place] [address] Phone Care Team Providers Care Test Engineer Name Role Phone Louie Hood MD Primary Care Provider Zara Smith APRN, STEEL POURER HELPER Unavailable [phone] Reason for Visit * Reason Comments Medication Refill Encounter Details Date Type Department Care Team (Late Contact Info) Description 09/11/2022 Refill [facility] Neurology [facility] #2 [place] [phone] Zara Smith, MOUNTAIN BIKE GUIDE, STEEL POURER HELPER [address] [place] [address] Medication Refill Social History Tobacco Use Types [...] Description 05/27/2026 10:30 AM CDT Office Visit [facility] Neurology [facility] [address] [place] [address] Zara Smiht APRN, STEEL POURER HELPER [address] [place] [address] documented as of this encounter Visit Diagnoses Not on filedocumented in this encounter Care Teams Test Engineer Relationship Specialty Start Date End Date Louie Hood MD [address] [place] [address] PCP - General Family Medicine 10/28/21 Zara Smith APRN, STEEL POURER HELPER [address] [place] [address] Nurse Practitioner Advanced Practice Nurse 12/23/22 documented as of this encounter
--- OUTSIDE RECORDS SUMMARY | 2025-05-28 08:31 | XMS_ITS | Encounter Summary ---
Author Organization [facility] Address [address] [place] [address] Phone Care Team Providers Care Brass Plater Name Role Phone Louie Hood MD Primary Care Provider Zara Smith APRN, SUGAR CANE GROWER Unavailable [phone] Reason for Visit * Reason Comments Medication Refill Encounter Details Date Type Department Care Team (Late st Contact Info) Description 12/28/2023 Refill [facility] - Neurology - [place] [address] [place] [phone] Zara Smith, MIGRATORY FARM HAND, SUGAR CANE GROWER [address] [place] [address] Medication Refill Social History Tobacco Use Types [...] encounter Miscellaneous Notes * Telephone Encounter - Yari Delgado RN - 12/28/2023 12:47 PM CST Medication failed the protocol, provider to review and approve the medication order if appropriate. Requested Prescriptions Pending Prescriptions Disp Refills gabapentin (NEURONTIN) 600 MG Tablet [Pharmacy Med Name: Gabapentin 600 MG Oral Tablet] 180 Tablet 0 Sig: Take 1 tablet by mouth twice daily Not Delegated - Anticonvulsants Excluding Benzodiazepines Protocol Failed - 12/28/2023 10:58 AM Failed - This refill cannot be delegated Passed - Visit with relevant provider in past 12 months or upcoming 90 days Recent Visits Date Type Provider Dept 12/26/23 Office Visit Zara Smith APRN, SUGAR CANE GROWER [facility] Showing recent visits within past 365 days and meeting all other requirements Future Appointments No visits were found meeting these conditions. Showing future appointments within next 90 days and meeting all other requirements UNTS PAYABLE PROCESSOR documented in this encounter Plan of Treatment Upcoming Encounters Date Type Department Care Team (Late st Contact Info) Description 05/27/2026 10:30 AM CDT Office Visit [facility] - [facility] #2 [place] [address] Zara Smith APRN, SUGAR CANE GROWER [address] [place] [address] documented as of this encounter Visit Diagnoses Not on filedocumented in this encounter Care Teams Brass Plater Relationship Specialty Start Date End Date Louie Hood MD [address] [place] [address] PCP - General Family Medicine 10/28/21 Zara Smith APRN, SUGAR CANE GROWER [address] [place] [address] Nurse Practitioner Advanced Practice Nurse 12/23/22 documented as of this encounter
--- OUTSIDE RECORDS SUMMARY | 2025-05-28 08:31 | XMS_ITS | Encounter Summary ---
Author Organization [facility] Address [address] [place] [address] Phone Care Team Providers Care Apparatus Repair Mechanic Name Role Phone Louie Hood MD Primary Care Provider Zara Smith APRN, SURGICAL TRAINING SPECIALIST Unavailable [phone] Reason for Visit * Reason Comments Medication Refill Encounter Details Date Type Department Care Team (Late Contact Info) Description 11/01/[address] [facility] Neurology - [place] [address] [place] [phone] Zara Smiht, MINE FOREMAN, SURGICAL TRAINING SPECIALIST [address] [place] [address] Medication Refill Social History Tobacco Use Types [...] Description 05/27/2026 10:30 AM CDT Office Visit [facility] Neurology [facility] #[address] [place] [address] Zara Smith APRN, SURGICAL TRAINING SPECIALIST [address] [place] [address] documented as of this encounter Visit Diagnoses Not on filedocumented in this encounter Care Teams Apparatus Repair Mechanic Relationship Specialty Start Date End Date Louie Hood MD [address] [place] [address] PCP - General Family Medicine 10/28/21 Zara Smith APRN, SURGICAL TRAINING SPECIALIST [address] [place] [address] Nurse Practitioner Advanced Practice Nurse 12/23/22 documented as of this encounter
--- OUTSIDE RECORDS SUMMARY | 2025-05-28 08:31 | XMS_ITS | Referral Summary ---
Author Organization [facility] Office Building [facility] Address [address] [place] [address] Care Team Providers Care School Bus Driver/Teacher Assistant Name Role Phone Louie Hood DO Primary [...] Overview (03/04/2017): Obesity, Class II, BMI 35-39.9 Social History Tobacco Use Types Packs/Day Years Used Date Smoking Tobacco: Never Smokeless Tobacco: Former Chew Alcohol Use Standard Drinks/Week Comments Yes 0 (1 standard drink = 0.6 oz pur e alcohol) Sex and Gender Information Value Date Recorded Sex Assigned at Not on file Legal Sex Male 10:04 AM OUTSIDE MACHINIST HELPER Gender Identity Not on file Sexual Orientation Not on file Last Filed Vital Signs Vital Sign Reading [...] Plan of Treatment Not on file Insurance [facility] MDCR HMO REF [facility] MEDIC[facility] Address: [id number] [place] [address] Care Teams School Bus Driver/Teacher Assistant Relationship Specialty Start Date End Date Louie Hood DO [address] [place] [address] PCP - General Family Medicine 06/26/21
--- OUTSIDE RECORDS SUMMARY | 2025-05-28 08:31 | XMS_ITS | Clinical Summary ---
Author Organization [facility] Address [address] [place] [address] Phone Care Team Providers Care Inventory Representative Name Role Phone Louie Hood MD Primary Care Provider [phone] Zara Smith APRN, SEMICONDUCTOR WAFERS ETCH OPERATOR Unavailable [phone] Allergies Active Allergy Reactions Criticality Noted Date Comments Fluvastatin Other (see Comments) 05/12/2011 HIGH LFT Niacin Other (see Comments) 05/12/2011 HIGH LFT Statins Other (see Comments) 11/24/2017 HIGH LFT Medications aspirin 81 MG Chewable Tablet Take 325 mg by mouth daily. 1 TAB ONCE A DAY Active carvedilol (COREG) 3.125 MG Tablet Take 3.125 mg by mouth 2 times daily. TAKE 1 TABLET BY MOUTH BID Active ezetimibe (ZETIA) 10 MG Tablet Take 10 mg by mouth daily. TAKE 1 TABLET BY MOUTH DAILY Active dilTIAZem (CARDIZEM) 60 MG Tablet Take 1 tablet by mouth 4 times daily 360 Tab 12/01/19 21 Active ALBUTEROL SULFATE HFA IN take by inhalation. Active Cyanocobalamin (VITAMIN B-12) 1000 MCG Tablet Take 1,000 mcg by mouth daily. Active Diclofenac Sodium (VOLTAREN) 1 % Gel Apply 4 times daily. Active fexofenadine (BLAISE) 180 MG Tablet Take 180 mg by mouth daily. Active fluticasone (FLONASE) 50 MCG/ACT Suspension 1-2 Sprays by Nasal route daily. Use in each nostril as directed. Active Multiple Vitamin (MULTIVITAMINS PO) Take by mouth. Activ e Trulicity 0.75 MG/0.5ML Solution Auto-injector INJECT 0.75MG SUBCUTANEOUSLY ONCE WEEKLY 05/13/20 25 Active gabapentin (NEURONTIN) 800 MG TabletIndicati ons:Neuropathy Take 1 Tablet by mouth 2 times daily. 180 Tablet 3 05/27/20 25 Active phenytoin (DILANTIN) 300 MG ER capsuleIndicat ions:Seizure (HCC) Take 1 Capsule by mouth 2 times daily. 180 Capsule 3 05/27/20 25 Active metFORMIN (GLUCOPHAGE) 500 MG Tablet Take 1 tablet by mouth twice daily 180 Tab 12/01/19 21 025 Discontin ued(Med List Clean Up) phenytoin (DILANTIN) 300 MG ER capsuleIndicat ions:Seizure (HCC) Take 1 Capsule by mouth 2 times daily. 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 05/12/2011 Encounters Date Type Department Care Team Description 05/27/2025 10:30 AM CDT Office Visit [facility] [address] [place] [address] Zara Smith APRN, SEMICONDUCTOR WAFERS ETCH OPERATOR Seizure (HCC) (Primary Dx); Neuropathy; Hyperlipidemia LDL goal <70; History of stroke Discharge Disposition: Discharged to home or Selfcare 05/27/2025 Travel 04/07/2025 Refill [facility] [address] [place] [address] Zara Smith APRN, SEMICONDUCTOR WAFERS ETCH OPERATOR Medication Refill from Last 3 Months Immunizations Immunization Administration Dates Next Due Covid-19, Mrna, Lnp-s, PF, 1 00 mcg/0.5 mL Dose (Moderna) 03/06/2021,02/04/2021 DTAP VACCINE 05/02/2008 Influenza Vaccine greater than 3 yrs 08/12/2020 Zoster Vaccine, live 10/20/2020 Zoster, Unspecified Formulation 08/12/2020 Family History Medical History Relation Name Comments Hypertension Father Stroke Father Stroke Maternal Grandfather Cancer Mother Diabetes Mother Hypertension Mother Relation Name Status Comments Father Maternal Grandfather Mother Social History Tobacco Use Types Packs/Day Years Used Date Smoking Tobacco: Never Smokeless Tobacco: Never Tobacco Cessation:Counseling Given: Not Answered Alcohol Use Standard Drinks/Week Comments Not Currently 0 (1 standard drink = 0.6 oz pur e alcohol) Sex and Gender Information Value Date Recorded Sex Assigned at Not on file Legal Sex Male 10:56 PM CDT Gender Identity Not on file Sexual Orientation Not on file Last Filed Vital Signs Vital Sign Reading Time Taken Comments Blood Pressure 102/72 05/27/2025 10:23 AM CDT Pulse 56 05/27/2025 10:23 AM CDT Temperature 36.2 C (97.2 F) 05/27/2025 10:23 AM CDT Respiratory Rate 16 05/27/2025 10:2 3 AM CDT Oxygen Saturation 99% 05/27/2025 10: 23 AM CDT Inhaled Oxygen Concentration - - Weight 122.1 kg (269 lb 3.2 oz) 025 10:23 AM CDT Height 182.9 cm (6') 05/27/2025 10:23 AM CDT Body Mass Index 36.51 05/27/2025 10:23 AM CDT Plan of Treatment Upcoming Encounters Date Type Department Care Team (Late st Contact Info) Description 05/27/2026 10:30 AM CDT Office Visit [facility] - [facility]rology - [place] [address] [place] [address] Zara Smith APRN, SEMICONDUCTOR WAFERS ETCH OPERATOR [address] [place] [address] Health Maintenance Due Date Last Done Comments Hepatitis C Virus (HCV) Screening 1955 Cologuard 2000 Immunochemical Fecal Occult Blood 2000 Colonoscopy 02/20/2019 02/20/2009 Colorectal Cancer Screening 02/20/2019 Zoster Immunization (2 of 3) 12/15/2020 10/20/2020, 08/12/2020 SARS-COV-2 Immunization ( season) 2025 09/24/2024, 09/05/2023, 09/02/2022, Additional history exists DTaP/Tdap/Td Immunization Discontinued 12/28/2021, 03/2008 Pneumococcal Immunization (50+ years) Completed 08/05/2022 Pneumococcal Immunization Combined Discontinued 08/05/2022 Respiratory Syncytial Virus (RSV) Immunization (Adult) Completed 08/13/2023 Influenza Immunization Completed , 08/13/2023, 08/05/2022, Additional history exists Hepatitis B Immunization Aged Out No longer eligible based on patient's age to complete this topic Human Papillomavirus (HPV) Immunization Aged Out No longer eligible based on patient's age to complete this topic Meningococcal Immunization (ACWY) Aged Out No longer eligible based on patient's age to complete this topic Rotavirus Immunization Aged Out No lo nger eligible based on patient's age to complete this topic Procedures Procedure Name Priority Date/Time Associated Diagnosis Comments COLONOSCOPY Routine 02/20/2009 from Last 3 Months or Most Recently Relevant to Health Maintenance Results * COLONOSCOPY (02/20/2009) Quique Camara MD PROCEDURE/MINOR SURGICAL OR DERABLES Final Result from Last 3 Months or Most Recently Relevant to Health Maintenance [facility] Care Teams Inventory Representative Relationship Specialty Start Date End Date Louie Hood MD [address] [place] [address] PCP - General Family Medicine 10/28/21 Zara Smith APRN, SEMICONDUCTOR WAFERS ETCH OPERATOR [address] [place] [address] Nurse Practitioner Advanced Practice Nurse 12/23/22
--- OUTSIDE RECORDS SUMMARY | 2025-05-28 08:31 | XMS_ITS | Clinical Summary ---
Author Organization [facility] Address [address] [place] [address] Care Team Providers Care Fashion Director Party Plan Sales Name Role Phone Toro Camara MD Primary Care Provider [phone] Social History Tobacco Use Types Packs/Day Years Used Date Smoking Tobacco: Never Assessed Sex and Gender Information Value Date Recorded Sex Assigned at Not on file Legal Sex Male 2:39 PM CDT Gender Identity Not on file Sexual Orientation Not on file Plan of Treatment Health Maintenance Due Date Last Done Comments Colorectal Cancer Screening Colonoscopy (10 Years) 1955 Hepatitis C 1973 DTaP, Tdap and Td Vaccines ( 1 - Tdap) 1974 Pneumococcal Vaccine: 50+ Ye ars (1 of 1 - PCV) 2005 Zoster Vaccines (1 of 2) 2005 COVID-19 Vaccine ( - 2023-2 5 season) 2024 RSV Immunization or 60+ Years (1 - 1-dose 75+ series) 2030 Meningococcal B Vaccine Aged Out No l onger eligible based on patient's age to complete this topic Meningococcal Vaccine Aged Out No liz dora eligible based on patient's age to complete this topic RSV Immunizations Under 20 Months Aged Out No longer eligible based on patient's age to complete this topic Care Teams Fashion Director Party Plan Sales Relationship Specialty [place] [address] [place] [address] PCP - General INTERNAL MEDICINE 03/05/20
--- OUTSIDE RECORDS SUMMARY | 2025-05-28 08:31 | XMS_ITS | Encounter Summary ---
Author Organization [facility] Address [address] [place] [address] Phone Care Team Providers Care Research And Insights Executive Name Role Phone Louie Hood MD Primary Care Provider Zara Smith APRN, OPERATIONS VOCATIONAL INSTRUCTOR Unavailable [phone] Reason for Visit * Reason Comments Seizure Encounter Details Date Type Department Care Team (Late st Contact Info) Description 05/27/2025 10:30 AM CDT Office Visit [facility] - [facility]rology - [place] [address] [place] [id number] Zara Smith, WRINGER AND SETTER, OPERATIONS VOCATIONAL INSTRUCTOR [address] [place] [address] Seizure (HCC) (Primary Dx); Neuropathy; Hyperlipidemia LDL goal <70; History of stroke Discharge Disposition: Discharged to home or Selfcare Social History Tobacco Use Types Packs/Day Years [...] on file documented as of this encounter Last Filed Vital Signs Vital Sign Reading [...] Mass Index 36.51 05/27/2025 10:23 AM CDT documented in this encounter Plan of Treatment Upcoming Encounters Date Type Department Care Team (Late st Contact Info) Description 05/27/2026 10:30 AM CDT [facility] [place] [address] [place] [address] Zara Smith APRN, OPERATIONS VOCATIONAL INSTRUCTOR [address] [place] [address] Scheduled Orders Name Type Priority Associated Diagnoses Orde r Schedule DILANTIN (PHENYTOIN) Lab Routine Seizure (HCC) Expected: 05/27/2025, Expires: 08/25/2025 LIPID PANEL Lab Routine Hyperlipidemia LDL goal <70 Expected: 05/27/2025, Expires: 08/25/2025 documented as of this encounter Visit Diagnoses Diagnosis Seizure (HCC)- Primary Other convulsions Neuropathy Mononeuritis of unspecified site Hyperlipidemia LDL goal <70 Other and unspecified hyperlipidemia History of stroke Transient ischemic attack (TIA), and cerebral infarction without residual deficits documented in this encounter Care Teams Research And Insights Executive Relationship Specialty Start Date End Date Louie Hood MD [address] [place] [address] PCP - General Family Medicine 10/28/21 Zara Smith APRN, OPERATIONS VOCATIONAL INSTRUCTOR [address] [place] [address] Nurse Practitioner Advanced Practice Nurse 12/23/22 documented as of this encounter
--- OUTSIDE RECORDS SUMMARY | 2025-05-28 08:32 | XMS_ITS | Encounter Summary ---
Author Organization [facility] Address [address] [place] [address] Phone Care Team Providers Care Grants Manager Name Role Phone Quique Camara MD Primary Care Provider Louie Hood MD Primary Care Provider Zara Smith APRN, EMPLOYMENT SERVICE SPECIALIST Unavailable [phone] Reason for Visit * Reason Comments Medication Refill Encounter Details Date Type Department Care Team (Late st Contact Info) Description 12/21/2020 Refill [facility] Scheduling [address] [place] [id number] Quique Camara MD [address] [facility] [address] Medication Refill Social History Tobacco Use Types Packs/Day Years Used Date Smoking Tobacco: Never Assessed Sex and Gender Information Value Date Recorded Sex Assigned at Not on file Legal Sex Male 10:56 PM CDT Gender Identity Not on file Sexual Orientation Not on file documented as of this encounter Miscellaneous Notes * Telephone Encounter - Willow Moses RN - 12/22/2020 8:07 AM CST Please review and sign. MAN documented in this encounter Plan of Treatment Upcoming Encounters Date Type Department Care Team (Late st Contact Info) Description 05/27/2026 10:30 AM CDT Office Visit [facility] - Neurology - [place] [address] [place] [address] Zara Smith APRN, EMPLOYMENT SERVICE SPECIALIST [address] [place] [address] documented as of this encounter Visit Diagnoses Not on filedocumented in this encounter Care Teams Grants Manager Relationship Specialty Start Date End Date Quique Camara MD [address] [place] [address] PCP - General Internal Medicine 05/20/20 10/27/21 Louie Hood MD [address] [place] [address] PCP - General Family Medicine 10/28/21 Zara Smith APRN, EMPLOYMENT SERVICE SPECIALIST [address] [place] [address] Nurse Practitioner Advanced Practice Nurse 12/23/22 documented as of this encounter
[2025-05-28 09:08] LABS: Cholesterol 218 mg/dL (0-200); HDL Direct 42 mg/dL; Triglycerides 246 mg/dL (<150)
== END 2025-05-28 08:22 | disposition home or self-care (01) ==
LOC: CHSLAB 08:26
PROVIDERS: PCP Family Medicine; Visit Provider Clinical Nurse Specialist Adult Health
DX: E78.5 Hyperlipidemia, unspecified (principal); R56.9 Unspecified convulsions
CPT/HCPCS: 36415; 80061; 80185

== ENCOUNTER 2025-10-09 10:56 | Outpatient (CLI) | payer MEDICARE, SELFPAY ==
--- NOTE | ~2025-10-09 | XR_ITS ---
EXAM/PROCEDURE: [id number] HISTORY: W18.30XA - Fall on same level, unspecified, initial encou... COMPARISON: Sagittal images of the CT exam from August 2024 TECHNIQUE: Chest x-ray and rib series FINDINGS: Lungs appear clear with no consolidation effusion or pneumothorax. No subphrenic free air seen. Heart size normal. Diffuse osteopenic and degenerative changes throughout the thoracic spine with kyphotic angulation; anterior wedge deformity noted in the lower thoracic vertebral bodies appears stable compared to 2023 CT. No displaced rib fracture seen. IMPRESSION: No acute findings. No displaced rib fracture seen. Reviewed, dictated and finalized at location A. ICAL TRIAL DATA MANAGER
== END 2025-10-09 10:57 | disposition home or self-care (01) ==
LOC: CHSIMG 10:57
PROVIDERS: PCP Family Medicine; Visit Provider Family Medicine
DX: S29.9XXA Unspecified injury of thorax, initial encounter (principal)
CPT/HCPCS: 71111